=== PATIENT | male | born 1950 | race Caucasian/White ===

== ENCOUNTER → 2017-10-14 | Day surgery (SDC) | payer MEDICARE ==
[2017-10-09 08:29] VITALS: BMI 27.7
--- NOTE | 2017-10-13 23:04 | P.GSHP ---
History of Present Illness H&P Date: 10/14/17 CHIEF COMPLAINT: Inguinal hernia, left and umbilical hernia HISTORY OF PRESENT ILLNESS: The patient is a 67-year-old male who presents with a history of swelling and pain along the left groin and umbilicus Now he presents for repair. PAST MEDICAL HISTORY: Please see list. PAST SURGICAL HISTORY: Please see list. MEDICATIONS: Please see list. ALLERGIES: Please see list. SOCIAL HISTORY: No illicit drug use FAMILY HISTORY: No reports of Crohn disease or ulcerative colitis. REVIEW OF ORGAN SYSTEMS: CONSTITUTIONAL: No reports of fevers or chills. No reports of weight loss despite prior attempts. GI: Denies any blood in stools or constipation. PHYSICAL EXAM: VITAL SIGNS: Stable GENERAL: Well-developed pleasant male in no acute distress. HEENT: No scleral icterus. Extraocular movements grossly intact. Moist buccal mucosa. NECK: Supple without lymphadenopathy. CHEST: Unlabored respirations. Equal bilateral excursions. CARDIOVASCULAR: Regular rate and rhythm. Distal 2+ pulses. ABDOMEN: Soft, nondistended. No peritoneal signs. Palpable defect of the left groin and umbilicus. MUSCULOSKELETAL: No clubbing, cyanosis, or edema. ASSESSMENT: 1. Inguinal hernia, left 2. Umbilical hernia. PLAN: 1. Recommend proceeding with a robotic umbilical hernia and inguinal repair with mesh with possible bilateral approach. 2. Benefits and risks of surgical intervention was discussed including possibility of open technique. 3. DVT prophylaxis. 4. Antibiotic prophylaxis. Past Medical History Past Medical History: Osteoarthritis (OA), Prostate Disorder History of Any Multi-Drug Resistant Organisms: None Reported Additional Past Surgical History / Comment(s): uvula removed,vasectomy, cataracts removed Past Anesthesia/Blood Transfusion Reactions: Postoperative Nausea & Vomiting ( PONV) Smoking Status: Never smoker - Past Family History Daughter(s) Family Medical History: Deep Vein Thrombosis (DVT) Mother Family Medical History: Cancer Additional Family Medical History / Comment(s): lung Father Family Medical History: Cancer Additional Family Medical History / Comment(s): brain tumor Medications and Allergies Home Medications Medication Instructions Recorded Confirmed Type Aspirin 325 mg PO DAILY PRN 10/09/17 10/09/17 History Cholecalciferol (Vitamin D3) 2,000 unit PO DAILY 10/09/17 10/09/17 History [Vitamin D3] Glucosamine-Chondr 500-400Mg 1 each PO DAILY 10/09/17 10/09/17 History Ibuprofen [Motrin] 400 mg PO Q6HR PRN 10/09/17 10/09/17 History Allergies Allergy/AdvReac Type Severity Reaction Status Date / Time No Known Allergies Allergy Verified 10/09/17 08:16
[~2017-10-14] MED LIST: BUPIVACAINE (PF) 0.5% 30 ML VIAL SQ ONE; DEXAMETHASONE SOD PHOSPHATE 10 MG/ML 1 ML VIAL IV ONE; GLYCOPYRROLATE 0.2 MG/ML 2 ML VIAL ONE; HEPARIN SODIUM,PORCINE 5,000 UNIT/ML 1 ML VIAL SQ ONE; HYDROcodone/APAP 5-325MG 1 EACH TAB PO ONE; HYDROmorphone 0.5 MG/0.5 ML SYRINGE IVP ONE; LACTATED RINGERS 1,000 ML IV ONE; LIDOCAINE 1% 20 ML VIAL (10MG/ML) FOR IV START INTRADERMA PRN; LIDOCAINE 1% INJ 10MG/ML (20 ML MDV) ONE; MEPERIDINE 50 MG/ML SYRINGE IVP ONE; MIDAZOLAM 2 MG/2 ML VIAL IV ONE; MIDAZOLAM 2 MG/2 ML VIAL ONE; MORPHINE SULFATE 4 MG/ML SYRINGE IV PRN; NEOSTIGMINE 1 MG/ML 10 ML VIAL ONE; ONDANSETRON 4 MG/2 ML VIAL IVP ONE; PROPOFOL 10 MG/ML 20 ML VIAL IV ONE; ROCURONIUM BROMIDE 10 MG/ML 10 ML VIAL IV ONE; ROPIVACAINE 5 MG/ML 30 ML VIAL ONE; SUCCINYLCHOLINE CHLORIDE 100 MG/5 ML SYR IV ONE; TAMSULOSIN 0.4 MG CAP.ER.24H PO STA; ceFAZolin IN SWFI 2 GM/20 ML SYRINGE IVP ONE; diphenhydrAMINE 50 MG/ML 1 ML VIAL IVP ONE; ePHEDrine SULFATE/0.9% NACL/PF 50 MG/5 ML SYRINGE IV ONE; fentaNYL (PF) 50 MCG/ML 2 ML AMP IV ONE; fentaNYL (PF) 50 MCG/ML 2 ML AMP ONE
[2017-10-14 10:19] LABS: HCT 43.3 % (39.0-53.0); HGB 14.8 gm/dL (13.0-17.5); MCH 31.9 pg (25.0-35.0); MCHC 34.2 g/dL (31.0-37.0); Mean Platelet Volume 8.2; Platelet Count 208 k/uL (150-450); RBC 4.65 m/uL (4.30-5.90); RDW 13.1 % (11.5-15.5); WBC 4.4 k/uL (3.8-10.6)
[2017-10-14 10:30] LABS: Anion Gap 10 mmol/L; Blood Urea Nitrogen 16 mg/dL (9-20); Calcium 9.6 mg/dL (8.4-10.2); Carbon Dioxide 31 mmol/L (22-30); Chloride 103 mmol/L (98-107); Glucose 91 mg/dL (74-99); Potassium 4.5 mmol/L (3.5-5.1); Sodium 144 mmol/L (137-145)
[2017-10-14] MEDS: LACTATED RINGERS 1,000 ML IV SCH ×2 (10:30→12:24)
[2017-10-14 10:34] VITALS: TEMP 97
--- NOTE | 2017-10-14 11:07 | P.ONQ ---
Anesthesiology Proc Note - PNB - Peripheral Nerve Block Performed Left Transversus Abdominis Single Time Out Performed: Yes Procedure Start Time: 10:58 Procedure Stop Time: 11:05 Indication: Analgesia Specifically requested for management of pain by DrLisa: Natalia Pastrana Sedation Type: Sedate with meaningful contact maintained Preparation: Sterile Prep Position: Supine Needle Size: 100mm (4") Needle Gauge: 20 (PUJUNK) Technique: Ultrasound Injectate: 0.5% Ropivacaine (see comment for volume) (15 ml) Blood Aspirated: No Pain Paresthesia on Injection Noted: No Resistance on Injection: Normal Events: Uneventful and Well Tolerated
--- NOTE | 2017-10-14 11:09 | P.ONQ ---
Anesthesiology Proc Note - PNB - Peripheral Nerve Block Performed Right Transversus Abdominis Single Procedure Start Time: 11:05 Procedure Stop Time: 11:10 Indication: Acute Post-Operative Pain Specifically requested for management of pain by DrLisa: Natalia Pastrana Sedation Type: Sedate with meaningful contact maintained Preparation: Sterile Prep Position: Supine Needle Types: Facet (PUJUNK) Needle Size: 100mm (4") Needle Gauge: 20 Technique: Ultrasound Injectate: 0.5% Ropivacaine (see comment for volume) (15 ml) Blood Aspirated: No Pain Paresthesia on Injection Noted: No Resistance on Injection: Normal Events: Uneventful and Well Tolerated
--- NOTE | 2017-10-14 13:27 | P.OP ---
Date of Procedure: 10/14/17 Description of Procedure: SURGEON: LAINE ROLDAN MD AIRPLANE TECHNICIAN: NANCY AMADOR PREOPERATIVE DIAGNOSES: 1. History of left inguinal hernia 2. Umbilical hernia POSTOPERATIVE DIAGNOSES: 1. History of left inguinal hernia, initial, direct, incarcerated 2. Umbilical hernia, initial, incarcerated, 2 cm OPERATION: 1. Robotic assisted da [employer] laparoscopic left inguinal hernia repair with ventralight ST mesh, 11.4 cm. 2. Robotic-assisted da [employer] Xi laparoscopic repair of initial incarcerated umbilical hernia 2 cm without mesh 3. Excision of incarcerated left inguinal lipoma ANESTHESIA: General with local anesthetic ESTIMATED BLOOD LOSS: 5 mL. SPECIMENS REMOVED: Left inguinal lipoma including sac, umbilical hernia COMPLICATIONS: None. INDICATIONS: The patient is a 67-year-old gentleman who presents with history of left inguinal pain and umbilical hernia. Now presents for definitive surgical intervention. Laparoscopic versus open and robotic approaches were discussed. Benefits and risks including bleeding, infection, injury to the vas deferens as well as sterility and chronic groin pain were reviewed. Placement of mesh was also described. Informed consent was obtained. DESCRIPTION: In the preoperative area, the patient was marked with indelible marker along the left groin. The patient was brought to the operating room and initially laid in supine position. After general induction, the abdomen had been prepped and draped in standard sterile fashion. Ioban draping was also placed. Prior to incision, a timeout protocol was confirmed with surgical team regarding patient's name including procedures to be performed and location along the left groin. Initial positioning for the robotic assisted ports were selected whereby 20 cm superior to the target anatomy, 0 degree 5 mm laparoscopic trocar entry was performed at the left upper quadrant. The abdomen was insufflated to 15 mmHg which he had tolerated well. Diagnostic laparoscopy demonstrated direct left inguinal hernia included an incarcerated umbilical hernia. No defects were identified at the right groin. Next, along the epigastrium, 8 mm robot trocar was placed. An 8-mm robotic trocar was placed under direct visualization at the right upper quadrant. The 5 mm port was exchanged for a 8 mm trocar. All trocars were positioned between 8 to 10-cm apart from each other. The [employer] robot was primed, draped, prepared for docking along the left side of the patient. I then went to the [employer] console. The graduate teaching assistant was at bedside for exchange of the robot arms and equipment. At the left groin, a 3 cm direct inguinal hernia was identified. The hernia sac was evaginated whereby the peritoneum was scored using Endo scissors with cautery. Once completely reduced into the abdominal cavity, the peritoneal sac of the hernia was stripped without a lipoma identified. The sac was resected and then passed off for further pathological analysis. The size of the hernia defect was 3 cm with intraoperative films obtained. Using a 2-0 V-LOC the peritoneal defect of the left inguinal hernia site was closed using a pursestring suture.. The defect was found to be completely closed with complete reduction of the left inguinal hernia was confirmed. As an onlay, an 11.[address] mesh by [employer] was cut in half and entered into the abdominal cavity via the 8 mm trocar. The mesh was tacked to the pelvis using 2-0 VLOC x 9-inch length sutures. Attention was brought to the umbilical hernia repair portion of the procedure. Fascial defect of 2 cm was identified at the umbilicus where an incarcerated ventral hernia was identified also containing fat. The incarcerated contents was reduced as the peritoneal fat was cleaned from the abdominal wall. Next, hemostasis was checked with cautery. The hernia defect of 2-cm was oversewn using #1 Stratafix with fascial imbrication 3. A final endoscopic imaging was obtained. The robot was undocked from the patient's bedside. I then rescrubbed into the case. Insufflation was released from the abdominal cavity and all instruments were removed from the abdominal cavity. Additional palm pressure was applied along the left groin as well as releasing any air along the scrotum and left groin. The rest of incisions were reapproximated using 4-0 Monocryl in a running subcuticular fashion. Local anesthetic was placed along the incision including for a groin block. Incisions were cleansed using dilute hydrogen peroxide. Liquid glue was applied to the skin. At the end of the procedure, the needle, sponge and instrument counts had been verified correct by the assembler surgical garment. The patient had tolerated the procedure well and was taken to the postanesthesia care unit in stable condition. Intraoperative findings were described to the patient's family. FINDINGS: 1. Left inguinal hernia, direct, 3 cm, Nyhus type 3. 2. Incarcerated umbilical hernia, 2 cm defect. 3. Incarcerated lipoma left groin. 4. Console time 45 minutes. Plan - Discharge Summary New Discharge Prescriptions: No Action Ibuprofen [Motrin] 400 mg PO Q6HR PRN PRN Reason: Pain Glucosamine-Chondr 500-400Mg 1 each PO DAILY Aspirin 325 mg PO DAILY PRN PRN Reason: Pain Cholecalciferol (Vitamin D3) [Vitamin D3] 2,000 unit PO DAILY Discharge Medication List Aspirin 325 mg PO DAILY PRN 10/09/17 [History] Cholecalciferol (Vitamin D3) [Vitamin D3] 2,000 unit PO DAILY 10/09/17 [History] Glucosamine-Chondr 500-400Mg 1 each PO DAILY 10/09/17 [History] Ibuprofen [Motrin] 400 mg PO Q6HR PRN 10/09/17 [History]
[2017-10-14 14:47] VITALS: RESP 18
[2017-10-14 15:28] VITALS: BP 135/78; PULSE 78
== END | disposition home or self-care (01) ==
LOC: OR 09:16
PROVIDERS: ATTEND Surgery Plastic and Reconstructive Surgery
DX: K40.90 Unilateral inguinal hernia, without obstruction or gangrene, not specified as recurrent (principal); K42.0 Umbilical hernia with obstruction, without gangrene; M19.90 Unspecified osteoarthritis, unspecified site
CPT/HCPCS: 49650; 49653; 80048; 85027; 88302; C1781; J2250; J1200; J1644; J1100; J2710; J2175; J2405; J2001; J3010; J2795; J0330; J2704; J1170; J0690; 93005

== ENCOUNTER → 2018-01-02 | Outpatient (CLI) | payer MEDICARE ==
--- NOTE | 2018-01-02 13:51 | XR ---
EXAMINATION TYPE: XR chest 2V DATE OF EXAM: 01/02/2018 COMPARISON: NONE HISTORY: Persistent cough and wheezing TECHNIQUE: Frontal and lateral views of the chest are obtained. FINDINGS: There is no focal air space opacity, pleural effusion, or pneumothorax seen. Minimal left basilar subsegmental atelectasis is seen near the costophrenic angle that is platelike. There is slig ht pulmonary hyperinflation and flattening of the diaphragms on the lateral image suggesting underlyi ng COPD. The cardiac silhouette size is within normal limits. The osseous structures are intact. M ild multilevel degenerative changes of the thoracic spine are noted. IMPRESSION: Left basilar subsegmental atelectasis otherwise no acute cardiopulmonary process. Pulmon harvey hyperinflation suggests underlying COPD. Correlate with pulmonary function tests.
== END | disposition home or self-care (01) ==
LOC: RADXRMAIN 11:42
PROVIDERS: ATTEND Midwife
DX: J98.11 Atelectasis (principal)
CPT/HCPCS: 71046

== ENCOUNTER → 2018-11-28 | Outpatient (CLI) | payer MEDICARE ==
[2018-11-28 08:23] LABS: African American GFR (CKD) >90 (>60 ml/min/1.73 sqM); Blood Urea Nitrogen 19 mg/dL (9-20)
--- NOTE | 2018-11-28 08:55 | CT ---
EXAMINATION TYPE: CT abdomen pelvis w con DATE OF EXAM: 11/28/2018 COMPARISON: None HISTORY: Upper Abdominal lump at xiphoid region CT DLP: 1025 mGycm CONTRAST: CT scan of the abdomen and pelvis is performed without Oral Contrast and with IV Contrast, patient in jected with 100 mL of Isovue 300. FINDINGS: LUNG BASES-: No visible nodule. No infiltrate. LIVER/GB: No calcified gallstones. No space occupying hepatic lesion. Biliary tree is of normal ca liber. PANCREAS: No inflammation. No distinct mass. SPLEEN: No splenic enlargement. No lesion seen. ADRENALS: No nodule. No thickening. KIDNEYS/BLADDER: No hydronephrosis. No nephrolithiasis. No distinct renal mass. Urinary bladder g rossly unremarkable. BOWEL: Normal appendix. Normal bowel caliber. No inflammation. Moderate fecal stasis. GENITAL ORGANS: The prostate gland is enlarged and measures 6.1 x 5.0 x 6.1 cm. LYMPH NODES: No greater than 1cm abdominal or pelvic lymph nodes are appreciated. AORTA: No significant abnormality. OSSEOUS STRUCTURES: No significant abnormality is seen. OTHER: 1.3 cm lipoma just caudal to the xiphoid process. IMPRESSION: 1. Moderate fecal stasis. 2. Prostate glandular enlargement. 3. 1.3 cm lipoma just caudal to the xiphoid process.
== END | disposition home or self-care (01) ==
LOC: RADCTMAIN 07:51
PROVIDERS: ATTEND Surgery Plastic and Reconstructive Surgery
DX: N40.0 Benign prostatic hyperplasia without lower urinary tract symptoms (principal); K57.32 Diverticulitis of large intestine without perforation or abscess without bleeding
CPT/HCPCS: 82565; 84520; 74177; Q9967

== ENCOUNTER 2018-12-24 07:40 | Day surgery (SDC) | payer MEDICARE ==
[2018-12-19 13:41] VITALS: BMI 26.6
--- NOTE | 2018-12-24 07:26 | P.GSHP ---
History of Present Illness H&P Date: 12/24/18 CHIEF COMPLAINT: GERD HISTORY OF PRESENT ILLNESS: The patient is a 68-year-old male who presents reports gastroesophageal reflux disease. Upper endoscopy was offered for further evaluation and management. PAST MEDICAL HISTORY: Please see list. PAST SURGICAL HISTORY: Please see list. MEDICATIONS: Please see list. ALLERGIES: Please see list. SOCIAL HISTORY: No illicit drug use FAMILY HISTORY: No reports of Crohn disease or ulcerative colitis. REVIEW OF ORGAN SYSTEMS: CONSTITUTIONAL: No reports of fevers or chills. GI: Denies any blood in stools or constipation. PHYSICAL EXAM: VITAL SIGNS: Stable GENERAL: Well-developed and pleasant in no acute distress. HEENT: No scleral icterus. Extraocular movements grossly intact. Moist buccal mucosa. NECK: Supple without lymphadenopathy. CHEST: Unlabored respirations. Equal bilateral excursions. CARDIOVASCULAR: Regular rate and rhythm. Distal 2+ pulses. ABDOMEN: Soft, nondistended. MUSCULOSKELETAL: No clubbing, cyanosis, or edema. ASSESSMENT: 1. Gastroesophageal reflux disease PLAN: 1. Recommend proceeding with an upper endoscopy Past Medical History Past Medical History: GERD/Reflux Additional Past Medical History / Comment(s): overactive bladder, History of Any Multi-Drug Resistant Organisms: None Reported Past Surgical History: Hernia Repair Additional Past Surgical History / Comment(s): uvula removed,vasectomy, cataracts removed, inguinal and abdominal hernia Past Anesthesia/Blood Transfusion Reactions: Previous Problems w/ Anesthesia, Motion Sickness, Postoperative Nausea & Vomiting (PONV) Additional Past Anesthesia/Blood Transfusion Reaction / Comment(s): hard time waking up Smoking Status: Never smoker - Past Family History Daughter(s) Family Medical History: Deep Vein Thrombosis (DVT) Mother Family Medical History: Cancer Additional Family Medical History / Comment(s): lung Father Family Medical History: Cancer Additional Family Medical History / Comment(s): brain tumor Medications and Allergies Home Medications Medication Instructions Recorded Confirmed Type Cholecalciferol (Vitamin D3) 2,000 unit PO DAILY 10/09/17 12/19/18 History [Vitamin D3] Mirabegron [Myrbetriq] 25 mg PO HS 12/19/18 12/19/18 History Omeprazole 20 mg PO HS 12/19/18 12/19/18 History Allergies Allergy/AdvReac Type Severity Reaction Status Date / Time No Known Allergies Allergy Verified 12/19/18 13:42
[~2018-12-24 07:40] MED LIST changes: -BUPIVACAINE (PF) 0.5% 30 ML VIAL SQ ONE; -DEXAMETHASONE SOD PHOSPHATE 10 MG/ML 1 ML VIAL IV ONE; -GLYCOPYRROLATE 0.2 MG/ML 2 ML VIAL ONE; -HEPARIN SODIUM,PORCINE 5,000 UNIT/ML 1 ML VIAL SQ ONE; -HYDROcodone/APAP 5-325MG 1 EACH TAB PO ONE; -HYDROmorphone 0.5 MG/0.5 ML SYRINGE IVP ONE; -LACTATED RINGERS 1,000 ML IV ONE; +LACTATED RINGERS 1,000 ML IV SCH; -LIDOCAINE 1% INJ 10MG/ML (20 ML MDV) ONE; -MEPERIDINE 50 MG/ML SYRINGE IVP ONE; -MIDAZOLAM 2 MG/2 ML VIAL IV ONE; -MIDAZOLAM 2 MG/2 ML VIAL ONE; -MORPHINE SULFATE 4 MG/ML SYRINGE IV PRN; -NEOSTIGMINE 1 MG/ML 10 ML VIAL ONE; -ONDANSETRON 4 MG/2 ML VIAL IVP ONE; -PROPOFOL 10 MG/ML 20 ML VIAL IV ONE; -ROCURONIUM BROMIDE 10 MG/ML 10 ML VIAL IV ONE; -ROPIVACAINE 5 MG/ML 30 ML VIAL ONE; -SUCCINYLCHOLINE CHLORIDE 100 MG/5 ML SYR IV ONE; -TAMSULOSIN 0.4 MG CAP.ER.24H PO STA; -ceFAZolin IN SWFI 2 GM/20 ML SYRINGE IVP ONE; -diphenhydrAMINE 50 MG/ML 1 ML VIAL IVP ONE; -ePHEDrine SULFATE/0.9% NACL/PF 50 MG/5 ML SYRINGE IV ONE; -fentaNYL (PF) 50 MCG/ML 2 ML AMP IV ONE; -fentaNYL (PF) 50 MCG/ML 2 ML AMP ONE
[2018-12-24 08:05] VITALS: TEMP 96.9
[2018-12-24] MEDS ORDERED: LIDOCAINE 1% INJ 10MG/ML (20 ML MDV) ONE (08:32)
[2018-12-24] MEDS ORDERED: PROPOFOL 10 MG/ML 20 ML VIAL IV ONE (08:32)
--- NOTE | 2018-12-24 08:53 | P.PCN ---
Date of Procedure: 12/24/18 Description of Procedure: PREOPERATIVE DIAGNOSIS: Dysphagia. Gastroesophageal reflux disease. POSTOPERATIVE DIAGNOSIS: Dysphagia. Gastroesophageal reflux disease. Esophageal stricture. Gastritis. OPERATION: Esophagogastroduodenoscopy with balloon dilation, 20-Bulgarian Esophagogastroduodenoscopy with biopsies along antrum. SURGEON: Natalia Pastrana MD ANESTHESIA: MAC. INDICATIONS: The patient is a 68-year-old male who presents with a history of reflux disease including dysphagia. Benefits and risks of the procedure were described. Informed consent was obtained. DESCRIPTION: The patient was brought into the endoscopy suite and laid in the left lateral decubitus position. An Olympus gastroscope was passed along the posterior oropharynx down to the distal esophagus where the squamocolumnar junction was encountered at 40 cm from the incisors. The stomach was entered and no bile reflux was found. Additional findings are listed below. Biopsies with cold forceps were obtained of the antrum. The first through third portion of the duodenum was examined and biopsied. Retroflexion of the scope confirmed Hill grade 2 lower esophageal valve. The squamocolumnar junction demostrated no acute LA grade A erosive esophagitis. Moderate tertiary contractions along the distal esophagus was observed including stricture along the GE junction. [employer] 20 mm balloon was used to dilate the distal esophagus for 2 minutes. The stomach was desufflated. The patient tolerated the procedure well. FINDINGS: Squamocolumnar junction 40 cm from the incisors. Diaphragmatic hiatus 40 cm. Hill grade 2 lower esophageal valve. LA grade A erosive esophagitis. No active duodenitis. Moderate superficial gastritis. Tertiary contractions distal esophagus with stricture dilated with 20-Bulgarian balloon RECOMMENDATIONS: Recommend manometry history of dysphagia. Upper endoscopy as needed. Plan - Discharge Summary Discharge Rx Participant: No New Discharge Prescriptions: No Action Cholecalciferol (Vitamin D3) [Vitamin D3] 2,000 unit PO DAILY Mirabegron [Myrbetriq] 25 mg PO HS Omeprazole 20 mg PO HS Discharge Medication List Cholecalciferol (Vitamin D3) [Vitamin D3] 2,000 unit PO DAILY 10/09/17 [History] Mirabegron [Myrbetriq] 25 mg PO HS 12/19/18 [History] Omeprazole 20 mg PO HS 12/19/18 [History] Follow up Appointment(s)/Referral(s): Natalia Pastrana MD [STAFF PHYSICIAN] - 01/06/19 Patient Instructions/Handouts: Esophageal Spasm (GEN), Gastroesophageal Reflux Disease (DC), Esophageal Dilation (DC) Discharge Disposition: HOME SELF-CARE
[2018-12-24 09:15] VITALS: BP 109/68; PULSE 64; RESP 18
== END 2018-12-24 09:39 | disposition home or self-care (01) ==
LOC: ORWHC2ENDO 07:40
PROVIDERS: ATTEND Surgery Plastic and Reconstructive Surgery
DX: K21.0 Gastro-esophageal reflux disease with esophagitis (principal); K22.2 Esophageal obstruction; K29.70 Gastritis, unspecified, without bleeding; K22.4 Dyskinesia of esophagus; Z79.899 Other long term (current) drug therapy
CPT/HCPCS: 88305; 43239; 43249; J2001; J2704; C1726

== ENCOUNTER → 2019-04-21 | Outpatient (CLI) | payer MEDICARE ==
--- NOTE | 2019-04-21 11:10 | MR ---
EXAMINATION TYPE: MR iac wo/w con DATE OF EXAM: 04/21/2019 COMPARISON: None HISTORY: Rt side hearing loss, family Hx of brain tumor TECHNIQUE: Multiplanar, multisequence images of the brain and brainstem with small [id number] and high resolu tion images performed without and with IV contrast, utilizing 7.5 mL intravenous Gadavist . FINDINGS: Diffusion weighted images demonstrate no evidence of a recent infarct or other diffusion ab normality. There is no significant white matter signal abnormality. At the level just superior to th e cerebellum there is spinal fluid signal present, focus measures approximately 2.1 x 2.3 x 3 cm and is consistent with arachnoid cyst The ventricular system and cisternal spaces are normal in size and appearance. The brain volume is age appropriate. Midline structures demonstrate normal morphology. Cerebellopontine angles are normal, there is no ab normal enhancement in the internal auditory canals, no evident mass The craniocervical junction appea rs within normal limits. Post contrast images demonstrate no abnormal enhancement. The dural venous sinuses appear patent. The visualized sinuses are clear and the globes are intact. IMPRESSION: Arachnoid cyst. No cerebellopontine angle mass.
== END | disposition home or self-care (01) ==
LOC: RADMRIMAIN 08:31
PROVIDERS: ATTEND Otolaryngology
DX: G93.0 Cerebral cysts (principal)
CPT/HCPCS: 70553; A9585

== ENCOUNTER → 2019-11-03 | Outpatient (CLI) | payer MEDICARE | END | disposition home or self-care (01) | LOC: LABWHC1 12:39 | PROVIDERS: ATTEND Urology | DX: R97.20 Elevated prostate specific antigen [PSA] (principal) | CPT/HCPCS: 36415; 84153 ==

== ENCOUNTER → 2020-02-19 | Outpatient (CLI) | payer MEDICARE ==
[2020-02-19 13:27] LABS: African American GFR (CKD) >90 (>60 ml/min/1.73 sqM); Blood Urea Nitrogen 18 mg/dL (9-20); Non-African American GFR(CKD) 86 (>60 ml/min/1.73 sqM)
--- NOTE | 2020-02-19 15:46 | CT ---
EXAMINATION TYPE: CT abdomen pelvis w con DATE OF EXAM: 02/19/2020 COMPARISON: CT 11/28/2018 HISTORY: Gross hematuria. CT DLP: 623.7 mGycm Automated exposure control for dose reduction was used. TECHNIQUE: Helical acquisition of images from the lung bases through the pelvis have been completed. CONTRAST: Performed with Oral Contrast and with IV Contrast, patient injected with 100 mL of Isovue M300. FINDINGS: LUNG BASES: No significant abnormality is appreciated. AORTA: No significant abnormality is appreciated. LIVER/GB: No significant abnormality is appreciated. PANCREAS: No significant abnormality is seen. SPLEEN: No significant abnormality is seen. ADRENALS: No significant abnormality is seen. KIDNEYS: No significant abnormality is seen. REPRODUCTIVE ORGANS: The prostate is enlarged, there is an inferior impression on the urinary bladder . BOWEL: There is diverticular change, axial image 51, retained fecal debris present throughout the di stribution of the colon. FREE AIR: No Free Air visible. ASCITES: None visible. PELVIC ADENOPATHY: None visualized. RETROPERITONEAL ADENOPATHY: No Retroperitoneal Adenopathy visible. URINARY BLADDER: Bladder wall thickening could be due to chronic outlet obstruction. OSSEOUS STRUCTURES: No significant abnormality is seen. IMPRESSION: DIVERTICULOSIS. CORRELATE FOR FECAL STASIS. CORRELATE FOR CYSTITIS.
== END | disposition home or self-care (01) ==
LOC: RADCTMAIN 12:35
PROVIDERS: ATTEND Urology
DX: K57.90 Diverticulosis of intestine, part unspecified, without perforation or abscess without bleeding (principal); R31.0 Gross hematuria
CPT/HCPCS: 82565; 84520; 74177; 36415; Q9967 ×2

== ENCOUNTER 2020-05-06 08:33 | Day surgery (SDC) | payer MEDICARE ==
[2020-05-05 09:15] VITALS: BMI 25.4
--- NOTE | 2020-05-05 19:29 | HP ---
HISTORY AND PHYSICAL CHIEF COMPLAINT: Chronic right serous otitis media/eustachian tube dysfunction. HISTORY OF PRESENT ILLNESS: This patient is a pleasant 69-year-old male who was recently seen in my office complaining of a plugged sensation in his right ear. The patient was apparently seeing the vice president of nursing and an audiogram was performed. Based upon the audiogram, the vice president of nursing felt that the patient had fluid in the right ear. At the time the patient was seen in my office, clinical examination of the right ear revealed chronic right serous otitis media, so-called "glue ear." The patient was initially placed on a course of Decadron Dosepak. He was seen back approximately 2 or 3 weeks later, and at that time he stated that the right ear still felt plugged. The patient was placed on a second and eventually a third course of Decadron Dosepak with a Z-Ghulam (Zithromax). He returned to the office and again he felt that the right ear still felt plugged. A tympanogram suggested that the patient still had either fluid or negative pressure in the right ear. It was therefore recommended the patient undergo a right myringotomy with insertion of a pediatric Tytan ventilation tube under IV sedation with M.A.C. PAST MEDICAL HISTORY: Past medical history reveals patient has NO KNOWN ALLERGIES TO MEDICATIONS. MEDICATIONS: His only current medication includes Prilosec. REVIEW OF SYSTEMS: Review of systems is positive with respect to the gastrointestinal system for GERD, gastroesophageal reflux disorder. The remainder of review of systems is unremarkable. PREVIOUS SURGERIES: Previous surgeries include a vasectomy, uvulopalatoplasty and hernia surgery. PHYSICAL EXAMINATION: The patient is a pleasant 69-year-old male who is alert, cooperative and well oriented to time and place. HEENT EXAMINATION: Patient is normocephalic. Examination of the left ear reveals the left tympanic membrane, middle ear space is free of any fluid or infection. Examination of the right ear reveals the left tympanic membrane is retracted and there is a suggestion of fluid in the right middle ear space. Pupils are equal, round, reactive to light and accommodation. Extraocular movements are within normal limits. Intranasal examination reveals moderate septal deviation with compensatory hypertrophy of the inferior turbinates, mild amount of mucus on the mucous membranes and draining down the posterior pharynx. Examination of oropharynx, palpation of the neck, cranial nerves 2-12 and remainder of the head and neck examination is all within normal limits. CHEST/CARDIOVASCULAR: Both lung montiel are clear to percussion and auscultation. The patient is in regular sinus rhythm. S1, S2 are present without any murmurs, S3s or S4s. ABDOMEN: There is no evidence any masses, megaly or tenderness. The abdomen is soft. Remainder of the physical examination is essentially unremarkable. IMPRESSION: 1. Right chronic serous otitis media. 2. Right eustachian tube dysfunction. PLAN: The patient is scheduled undergo a right myringotomy with insertion of a ventilation tube under IV sedation with M.A.C. in the a.m. ATTENTION RNS IN THE PRE-SURGICAL AREA: I have not ordered any pre-surgical prophylactic antibiotics for this patient. If the pharmacy department sends any pre- surgical prophylactic antibiotics to the pre-surgical area for this patient, please cancel that order and return the medication to the pharmacy department. Please make sure that the patient's account is credited appropriately. I have discussed the risks, benefits and alternative therapies for the above-mentioned procedure and for both sedation/analgesia as well as necessary blood product administration, if indicated, as they pertain to this patient. The patient has indicated his or her understanding and acceptance of the risks and procedures discussed. MMODL / IJN: [id number] /
[~2020-05-06 08:33] MED LIST changes: -LACTATED RINGERS 1,000 ML IV SCH; -LIDOCAINE 1% 20 ML VIAL (10MG/ML) FOR IV START INTRADERMA PRN; +Pre Op ABX Message 1 EACH MISC MISCELLANE ONE
[2020-05-06] MEDS ORDERED: ONDANSETRON 4 MG/2 ML VIAL ONE (08:41)
[2020-05-06 08:52] VITALS: TEMP 96.8
[2020-05-06] MEDS: LACTATED RINGERS 1,000 ML IV SCH ×2 (08:52→09:52)
[2020-05-06] MEDS ORDERED: LIDOCAINE 1% (10MG/ML) FOR IV START INTRADERMA ONE (08:53)
[2020-05-06] MEDS ORDERED: SCOPOLAMINE 1.5MG/72HR PATCH TRANSDERM ONE (08:54)
[2020-05-06] MEDS ORDERED: ONDANSETRON 4 MG/2 ML VIAL IVP ONE (08:55)
[2020-05-06] MEDS ORDERED: DEXAMETHASONE SOD PHOSPHATE 4 MG/ML 1 ML VIAL IV ONE (08:55)
[2020-05-06] MEDS ORDERED: PROPOFOL 10 MG/ML 20 ML VIAL IV ONE (09:49)
[2020-05-06] MEDS ORDERED: MIDAZOLAM 2 MG/2 ML VIAL ONE (09:49)
[2020-05-06] MEDS ORDERED: KETAMINE 10 MG/ML 20 ML VIAL ONE (09:49)
[2020-05-06] MEDS ORDERED: fentaNYL (PF) 50 MCG/ML 2 ML AMP ONE (09:49)
[2020-05-06] MEDS ORDERED: OFLOXACIN 0.3% OPHTH DROPS 5 ML BOTTLE RIGHT EAR ONE (10:09)
[2020-05-06 10:30] VITALS: RESP 16
[2020-05-06 11:12] VITALS: BP 110/60; PULSE 60
--- NOTE | 2020-05-06 16:57 | HP ---
HISTORY AND PHYSICAL DATE OF SURGERY: 05/06/2020 PREOPERATIVE DIAGNOSIS: Chronic right serous otitis media. POSTOPERATIVE DIAGNOSIS: Chronic right serous otitis media. ANESTHESIA: IV sedation with M.A.C. OPERATIVE PROCEDURE: Right myringotomy with insertion of a pediatric titanium Tytan ventilation tube. OPERATING SURGEON: Dr. Mo. COMPLICATIONS: None. OPERATIVE PROCEDURE DESCRIPTION: The patient was placed on the operating table in supine position, and after uneventful induction and IV sedation, satisfactory sedation was obtained. Next the patient's right ear was draped in the usual and customary fashion, following which, using the Zeiss operating microscope and a #3 aural speculum, the right external auditory canal was cleansed of all wax and debris. Next the myringotomy knife was used to make an incision in the anterior inferior quadrant of the right tympanic membrane. The right middle ear space was suctioned free of a significant amount of fluid that was present in the right middle ear space. Next, a pediatric Tytan ventilation tube was inserted through the previously made myringotomy incision which had been made in the anterior inferior quadrant with a myringotomy knife. At this point the procedure was terminated. There were no intraoperative complications. The patient tolerated the procedure well and was returned to the recovery room in satisfactory condition. MMODL / IJN: [id number] /
--- NOTE | 2020-05-08 16:53 | OP ---
OPERATIVE REPORT DATE OF SURGERY: 05/06/2020. PREOPERATIVE DIAGNOSIS: Chronic right serous otitis media. POSTOPERATIVE DIAGNOSIS: Chronic right serous otitis media. ANESTHESIA: IV sedation with M.A.C. OPERATIVE PROCEDURE: Right myringotomy with insertion of a pediatric titanium Tytan ventilation tube. OPERATING SURGEON: Dr. Mo. COMPLICATIONS: None. PROCEDURE: The patient is placed on the operating table in supine position and after uneventful induction and IV sedation, satisfactory sedation was obtained. Next, using the Zeiss operating microscope and a #3 aural speculum, the right external auditory canal was cleansed of all wax and debris. Next, using the myringotomy knife, an incision was made in the anterior inferior quadrant of the right tympanic membrane. Immediately, thick fluid was noted in the right middle ear space and this was suctioned free using a [place] suction tip. Following this, a pediatric Tytan ventilation tube was inserted through the previously made myringotomy incision without difficulty. At this point, the procedure was terminated. There were no intraoperative complications. The patient tolerated the procedure well and was returned to the recovery room in satisfactory condition. MMODL / IJN: [id number] /
== END 2020-05-06 11:13 | disposition home or self-care (01) ==
LOC: OR 08:33
PROVIDERS: ATTEND Otolaryngology
DX: H65.23 Chronic serous otitis media, bilateral (principal); H69.91 Unspecified Eustachian tube disorder, right ear; K21.9 Gastro-esophageal reflux disease without esophagitis; Z79.899 Other long term (current) drug therapy
CPT/HCPCS: 69436; J2250; J1100; J2405; J3010; J2704

== ENCOUNTER → 2020-06-21 | Outpatient (CLI) | payer MEDICARE ==
--- NOTE | 2020-06-21 14:04 | BD ---
EXAMINATION TYPE: Axial Bone Density DATE OF EXAM: 06/21/2020 COMPARISON: NONE CLINICAL HISTORY: Height: 68 Weight: 176.1 FRAX RISK QUESTIONS: Alcohol (3 or more units per day): no Family History (Parent hip fracture): no Glucocorticoids (More than 3mos): no (Ex: prednisone, prednisolone, methylprednisolone, dexamethasone, and hydrocortisone). History of Fracture in Adulthood: no Secondary Osteoporosis: 1. Type 1 Diabetes: no 2. Hyperthyroidism: no 3. Menopause before 45: n/a 4. Malnutrition: no 5. Chronic liver disease: no Rheumatoid Arthritis: no Current Tobacco Use: no RISK FACTORS HISTORY OF: Family History of Osteoporosis: no Active: yes Diet low in dairy products/other sources of calcium: yes Lost more than 2 inches in height since high school: yes MEDICATIONS: omeprazole, vit d, flomax, over active bladder meds Additional History: EXAM MEASUREMENTS: Bone mineral densitometry was performed using the [employer] System. Bone mineral density as measured about the Lumbar spine is: ----- L1-L4(G/cm2): 1.154 T Score Values are as follows: ----- L2: 0.2 ----- L3: 0.1 ----- L4: -1.0 ----- L1-L4: -0.2 Bone mineral density : baseline Bone mineral density about the R hip (g/cm2): 0.993 Bone mineral density about the L hip (g/cm2): 0.995 T Score values are as follows: -----R Neck: -0.3 -----L Neck: -0.3 -----R Total: 0.2 -----L Total: 0.0 Bone mineral density : baseline IMPRESSION: No evidence for osteoporosis or osteopenia. NOTE: T-SCORE=SD OF THE YOUNG ADULT MEAN.
== END | disposition home or self-care (01) ==
LOC: RADBDWWP 10:00
PROVIDERS: ATTEND Family Medicine
DX: R29.890 Loss of height (principal)
CPT/HCPCS: 77080

== ENCOUNTER → 2020-10-27 | Outpatient (CLI) | payer MEDICARE | END | disposition home or self-care (01) | LOC: LABWHC1 11:03 | PROVIDERS: ATTEND Urology | DX: R97.20 Elevated prostate specific antigen [PSA] (principal) | CPT/HCPCS: 36415; 84153 ==

== ENCOUNTER → 2020-11-17 | Day surgery (SDC) | payer MEDICARE ==
[2020-11-14 15:03] VITALS: BMI 27.2
[~2020-11-17] MED LIST changes: +LACTATED RINGERS 1,000 ML IV SCH; +ONDANSETRON 4 MG/2 ML VIAL IVP ONE; +ONDANSETRON 4 MG/2 ML VIAL ONE; +PROPOFOL 10 MG/ML 20 ML VIAL IV ONE; -Pre Op ABX Message 1 EACH MISC MISCELLANE ONE
--- NOTE | 2020-11-17 07:43 | P.GSHP ---
History of Present Illness H&P Date: 11/17/20 CHIEF COMPLAINT: Colon screen HISTORY OF PRESENT ILLNESS: The patient is a 70-year-old male who presents for colon screen. Lower endoscopy was offered for further evaluation and management. PAST MEDICAL HISTORY: Please see list. PAST SURGICAL HISTORY: Please see list. MEDICATIONS: Please see list. ALLERGIES: Please see list. SOCIAL HISTORY: No illicit drug use FAMILY HISTORY: No reports of Crohn disease or ulcerative colitis. REVIEW OF ORGAN SYSTEMS: CONSTITUTIONAL: No reports of fevers or chills. PHYSICAL EXAM: VITAL SIGNS: Stable GENERAL: Well-developed pleasant in no acute distress. HEENT: No scleral icterus. Extraocular movements grossly intact. Moist buccal mucosa. NECK: Supple without lymphadenopathy. CHEST: Unlabored respirations. Equal bilateral excursions. CARDIOVASCULAR: Regular rate and rhythm. Distal 2+ pulses. ABDOMEN: Soft, nontender, nondistended. MUSCULOSKELETAL: No clubbing, cyanosis, or edema. ASSESSMENT: 1. Colon screen. PLAN: 1. Recommend proceeding with a lower endoscopy Past Medical History Past Medical History: GERD/Reflux, Prostate Disorder Additional Past Medical History / Comment(s): hx of diverticulosis, BPH, CHINIK- right ear worse, wears hearing aids. History of Any Multi-Drug Resistant Organisms: None Reported Past Surgical History: Hernia Repair Additional Past Surgical History / Comment(s): uvula removed,vasectomy, cataracts , inguinal and umbilical hernia repair , tube right ear. Past Anesthesia/Blood Transfusion Reactions: Motion Sickness, Postoperative Nausea & Vomiting (PONV) Past Psychological History: No Psychological Hx Reported Smoking Status: Former smoker Past Alcohol Use History: None Reported Additional Past Alcohol Use History / Comment(s): maximum of 4 cigarettes per day. quit 45 years ago Past Drug Use History: None Reported - Past Family History Daughter(s) Family Medical History: Deep Vein Thrombosis (DVT) Mother Family Medical History: Cancer Additional Family Medical History / Comment(s): lung cancer Father Family Medical History: Cancer Additional Family Medical History / Comment(s): brain tumor Medications and Allergies Home Medications Medication Instructions Recorded Confirmed Type Cholecalciferol (Vitamin D3) 2,000 unit PO DAILY 10/09/17 11/14/20 History [Vitamin D3] Omeprazole 20 mg PO HS 12/19/18 11/14/20 History Chanel 1 tab PO DIRECTED 11/14/20 History Mirabegron [Myrbetriq] 50 mg PO HS 11/14/20 11/14/20 History Tamsulosin [Flomax] 0.4 mg PO HS 11/14/20 11/14/20 History Allergies Allergy/AdvReac Type Severity Reaction Status Date / Time artificial sugars Allergy frequent Uncoded 11/14/20 14:39 urination
[2020-11-17 09:24] VITALS: RESP 16; TEMP 97.8
--- NOTE | 2020-11-17 11:48 | P.PCN ---
Date of Procedure: 11/17/20 Description of Procedure: PREOPERATIVE DIAGNOSIS: Colonoscopy screening. POSTOPERATIVE DIAGNOSIS: Severe sigmoid diverticulosis with stenosis OPERATION: Colonoscopy to the splenic flexure SURGEON: Natalia Pastrana MD. ANESTHESIA: MAC. INDICATIONS: The patient is a 70-year-old male who presents for colonoscopy screening. Last colonoscopy 10 years ago. Benefits and risks were described and informed consent was obtained. DESCRIPTION OF PROCEDURE: The patient had undergone MiraLAX Gatorade prep. He had been brought into the operating room and laid in the left lateral decubitus position. After adequate intravenous sedation, the rectum was examined with 2% lidocaine jelly. External hemorrhoids were encountered. The rectal tone was loose. No lesions were palpated in the rectal vault. A pediatric Olympus colonoscope was advanced along the rectum to a very tortuous sigmoid colon with stricture identified. The scope was passed to the splenic flexure. Despite multiple maneuvers, the sigmoid colon had severe tortuosity preventing further advancement of scope. The scope was passed to 50 cm from the anal verge. No evidence of polyps were identified. As the patient posed high risk for perforation with persistence of the procedure, the procedure was discontinued. The colon was desufflated. The patient had tolerated the procedure well. Withdrawal time was over 6 minutes. FINDINGS: [place] preparation quality scale 3 (1-5) Tortuous sigmoid colon with stricture preventing further advancement of the scope. External prolapsed hemorrhoids. Scope advanced to sigmoid colon at 50 cm, descending colon No arteriovenous malformations. No adenomatous polyps. No focal colitis. RECOMMENDATIONS: Completion of colonoscopy evaluation with barium enema. Plan - Discharge Summary New Discharge Prescriptions: Continue Cholecalciferol (Vitamin D3) [Vitamin D3] 2,000 unit PO DAILY Omeprazole 20 mg PO HS Mirabegron [Myrbetriq] 50 mg PO HS Chanel 1 tab PO DIRECTED Tamsulosin [Flomax] 0.4 mg PO HS Discharge Medication List Cholecalciferol (Vitamin D3) [Vitamin D3] 2,000 unit PO DAILY 10/09/17 [History] Omeprazole 20 mg PO HS 12/19/18 [History] Chanel 1 tab PO DIRECTED 11/14/20 [History] Mirabegron [Myrbetriq] 50 mg PO HS 11/14/20 [History] Tamsulosin [Flomax] 0.4 mg PO HS 11/14/20 [History] Follow up Appointment(s)/Referral(s): Natalia Pastrana MD [STAFF PHYSICIAN] - 12/06/20 (Please call to confirm time) Patient Instructions/Handouts: Diverticulosis Diet (GEN), Diverticulosis (DC) Activity/Diet/Wound Care/Special Instructions: Repeat colonoscopy 2 years, 2022 Discharge Disposition: HOME SELF-CARE
[2020-11-17 12:29] VITALS: BP 126/67; PULSE 59
--- NOTE | 2020-11-17 17:19 | XR ---
EXAMINATION TYPE: XR abdomen 1V DATE OF EXAM: 11/17/2020 Comparison: None Clinical History: 70-year-old male prelim before Barium Enema. Incomplete routine screening colonosco py. Colonoscopy report from today indicated a stricture at the splenic flexure. No biopsies were take n. Findings: Prominent residual air throughout the colon. Nonobstructive bowel gas pattern. Numerous pelvic fluid ligaments. This makes suboptimal conditions to perform barium enema. The patient will be rescheduled. Impression: Prominent residual air throughout the colon following incomplete colonoscopy. Suboptimal conditions f or barium enema. Patient will be rescheduled.
--- NOTE | 2020-11-18 14:26 | FL ---
EXAMINATION TYPE: FL barium enema DATE OF EXAM: 11/18/2020 COMPARISON: None HISTORY: Incomplete colonoscopy TECHNIQUE: 2.56 minutes fluoroscopy. Images: 26 FINDINGS: There are scattered diverticuli within the redundant colon. Redundancy is evident within th e sigmoid colon. Presacral space is normal. The appendix is identified pre-evacuation. No persistent filling defects or circumferential areas of narrowing are evident. There is a normal postevacuation response. Findings Hourly Sales Staff view is noncontributory. IMPRESSION: 1. Mild diverticulosis without diverticulitis. 2. Redundancy through the sigmoid colon.
== END | disposition home or self-care (01) ==
LOC: ORWHC2ENDO 08:41
PROVIDERS: ATTEND Surgery Plastic and Reconstructive Surgery
DX: Z12.11 Encounter for screening for malignant neoplasm of colon (principal); Q43.8 Other specified congenital malformations of intestine; K56.699 Other intestinal obstruction unspecified as to partial versus complete obstruction; K64.8 Other hemorrhoids; K21.9 Gastro-esophageal reflux disease without esophagitis; N40.0 Benign prostatic hyperplasia without lower urinary tract symptoms; Z87.19 Personal history of other diseases of the digestive system; H91.90 Unspecified hearing loss, unspecified ear; Z98.52 Vasectomy status; Z98.49 Cataract extraction status, unspecified eye; Z98.890 Other specified postprocedural states; Z87.891 Personal history of nicotine dependence; Z82.49 Family history of ischemic heart disease and other diseases of the circulatory system; Z80.1 Family history of malignant neoplasm of trachea, bronchus and lung; Z80.8 Family history of malignant neoplasm of other organs or systems; Z79.899 Other long term (current) drug therapy; Z91.02 Food additives allergy status
CPT/HCPCS: 74018; J2405; J2704; G0121; 45378; 74270

== ENCOUNTER → 2020-11-18 | Outpatient (CLI) | payer MEDICARE | END | disposition home or self-care (01) | LOC: RADFLMAIN 07:36 | PROVIDERS: ATTEND Surgery Plastic and Reconstructive Surgery | DX: Z53.9 Procedure and treatment not carried out, unspecified reason (principal) ==

== ENCOUNTER → 2021-12-04 | Outpatient (CLI) | payer MEDICARE | END | disposition home or self-care (01) | LOC: LABWHC1 11:40 | PROVIDERS: ATTEND Urology | DX: R97.20 Elevated prostate specific antigen [PSA] (principal) | CPT/HCPCS: 36415; 84153 ==